=== PATIENT | female | born 1995 | race Caucasian/White ===

== ENCOUNTER 2018-08-10 14:34 | Outpatient (CLI) | payer BC ==
--- NOTE | 2018-08-10 17:35 | MRI ---
MRI OF THE LEFT HINDFOOT WITHOUT CONTRAST: Date: 08/10/18 INDICATION: History of ankle instability and ankle pain. FINDINGS: There is nonvisualization of the ATFL consistent with a chronic tear. The PTFL, calcaneofibular, synd esmotic ligament, and deltoid ligament appear intact. The spring ligament appears intact. No osteocho ndral lesion is identified. There is flattening of the peroneus brevis tendon with mild amount of flu id surrounding the peroneal tendon sheath suspicious for partial thickness tear of the peroneus brevi s at the level of the lateral malleolus. Sinus tarsi has a normal signal intensity. Plantar fascia is normal appearing. The Achilles tendon appears within normal limits. The medial flexor tendons appear normal. The extensor tendons are normal appearing. IMPRESSION: 1. Partial thickness split tear of the peroneus brevis tendon at the level of the lateral malleolus with reconstitution at the level of the lateral retinaculum. There is mild peroneal tenosynovitis. 2. 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 POS: IDALIA
--- NOTE | 2018-08-10 18:05 | MRI ---
MRI OF THE LEFT FOREFOOT WITHOUT IV CONTRAST 08/10/18 INDICATION: History of left forefoot injury in March of 2018 with persistent pain. There is a focus of internal marrow edema involving the proximal fourth metatarsal shaft near the pro ximal metadiaphyseal region which may reflect healing stress fracture. No additional marrow signal ab normality is grossly evident within the forefoot. The visualized Lisfranc fibers appear intact. There is some slight increased T2 signal seen involving the mid and plantar aspect of the Lisfranc fibers which may be artifactual in nature or related to a mild sprain. There is some mild subcutaneous edema overlying the fifth metatarsal region which is nonspecific. The intrinsic foot musculature demonstra angel normal signal intensity. The visualized plantar fascial band appears within normal limits. Flexor and extensor tendons appear within normal limits. The sesamoid of the great toe appear within normal limits. IMPRESSION: 1. Mild marrow edema involving the proximal shaft and metadiaphyseal region of the fourth metata rsal may reflect healing stress injury. No displaced fracture is evident. 2. Nonspecific subcutaneous edema overlying the fifth metatarsophalangeal joint. 3. Some very subtle increased T2 signal involving the mid to plantar aspect of the Lisfranc liga ment with intact discernible fibers. This may be artifactual in nature or related to a mild sprain. POS: IDALIA
== END 2018-08-10 14:35 | disposition home or self-care (01) ==
LOC: SCSMRI 14:34
PROVIDERS: ATTEND Podiatrist
DX: M25.372 Other instability, left ankle (principal); M25.572 Pain in left ankle and joints of left foot; R60.0 Localized edema; R93.7 Abnormal findings on diagnostic imaging of other parts of musculoskeletal system; S96.912A Strain of unspecified muscle and tendon at ankle and foot level, left foot, initial encounter